=== PATIENT | female | born 1965 | race Caucasian/White ===

== ENCOUNTER 2017-07-14 20:17 | Emergency (ER) | payer MEDICAID ==
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
[2017-07-14 21:12] LABS: % IMMATURE GRANULYOCYTES 0.2 % (0.0-1.1); ABSOLUTE IMMATURE GRANULOCYTES 0.01 10^3/uL (0.00-0.10); ADD DIFF? NO; ADD MORPH? NO; ADD SCAN? NO; ATYPICAL LYMPHOCYTE FLAG 0 (0-99); FRAGMENT RBC FLAG 0 (0-99); HEMOGLOBIN 15.7 g/dL (12.6-16.3); LEFT SHIFT FLG 0 (0-99); LIPEMIA HEMOLYSIS FLAG 90 (0-99); MEAN CELL HEMOGLOBIN 30.5 pg (27.9-34.1); MEAN CELL HEMOGLOBIN CONCENTR. 34.1 g/dL (32.4-36.7); MEAN CELL VOLUME 89.5 fL (81.5-99.8); MEAN PLATELET VOLUME 10.3 fL (8.7-11.7); PLATELET CLUMPS FLAG 0 (0-99); PLATELET COUNT 218 10^3/uL (150-400); RED BLOOD CELL COUNT 5.14 10^6/uL (4.18-5.33); RED CELL DISTRIBUTION WIDTH 12.6 % (11.5-15.2)
[2017-07-14 21:21] LABS: ANION GAP 18 mEq/L (8-16); CALCIUM 9.5 mg/dL (8.5-10.4); CARBON DIOXIDE 21 mEq/l (22-31); CHLORIDE 101 mEq/L (97-110); CREATININE 0.9 mg/dL (0.6-1.0); ETHANOL SERUM 300 mg/dL (0-10); GLOMERULAR FILTRATION RATE > 60; GLUCOSE 98 mg/dL (70-100); POTASSIUM 4.5 mEq/L (3.5-5.2); SODIUM 140 mEq/L (134-144)
[2017-07-15] MEDS ORDERED: ONDANSETRON DISINTEGRATING 4 MG TAB PO ONE (07:58)
[2017-07-15 09:23] VITALS: BP 131/86; PULSE 103; RESP 19; TEMP 98.4; O2SAT 96
== END 2017-07-15 09:26 | disposition home or self-care (01) ==
LOC: EDUNIT#
DX: F33.2 Major depressive disorder, recurrent severe without psychotic features (principal); F10.929 Alcohol use, unspecified with intoxication, unspecified
CPT/HCPCS: 80305; G0480